=== PATIENT | male | born 1985 | race African-American/Black ===

== ENCOUNTER 2017-11-18 13:34 | Emergency (ER) | payer OTHER, SELFPAY ==
--- NOTE | 2017-11-18 14:52 | RAD ---
CHEST PA AND LATERAL: Date: 11/18/17 HISTORY: 32-year-old male with history of dyspnea. FINDINGS: There is cardiomegaly with some bilateral vascular congestion. No overt edema or confluent pneumonia. Slight costophrenic angle blunting, but no significant effusion. IMPRESSION: Cardiomegaly with mild vascular congestion, without overt edema or confluent pneumonia, or other acut e process. POS: [facility]
[2017-11-18] MEDS ORDERED: predniSONE 20 MG TAB ONE (16:29)
== END 2017-11-18 16:34 | disposition home or self-care (01) ==
LOC: MADERS 13:34
DX: T59.891A Toxic effect of other specified gases, fumes and vapors, accidental (unintentional), initial encounter (principal); J68.0 Bronchitis and pneumonitis due to chemicals, gases, fumes and vapors; F17.210 Nicotine dependence, cigarettes, uncomplicated; Z79.899 Other long term (current) drug therapy
CPT/HCPCS: 71046; J7506; J7620

== ENCOUNTER 2019-08-08 10:58 | Emergency (ER) | payer SELFPAY ==
--- NOTE | 2019-08-08 12:07 | RAD ---
EXAM: XR Lumbar Spine 2 Or 3 View PROVIDED CLINICAL HISTORY: Low back pain. COMPARISON: 05/31/2009 FINDINGS: 5 nonrib-bearing lumbar-type vertebral bodies are again seen. L5 vertebral body on the lateral views is limited due to technique and overlying iliac bone. However, the vertebral body heights and intervertebral disc spaces of the lumbar spine appear to be within normal limits. No obvious fracture is seen, and there is no evidence of a subluxation. No significant interval change is seen compared to prior study. IMPRESSION: No acute findings seen involving the lumbar spine; although, there is limited evaluation of the L5 ve rtebral body as described above.
== END 2019-08-08 12:30 | disposition home or self-care (01) ==
LOC: MADERS 10:58
DX: M62.838 Other muscle spasm (principal); I10 Essential (primary) hypertension; F17.210 Nicotine dependence, cigarettes, uncomplicated; Z79.899 Other long term (current) drug therapy
CPT/HCPCS: 72100

== ENCOUNTER 2019-11-21 02:07 | Emergency (ER) | payer SELFPAY ==
[2019-11-21 02:43] LABS: #Basophils 0.1 thou/uL (0.0-0.2); #Eosinphils 0.2 thou/uL (0.0-0.7); #Lymphocytes 3.2 thou/uL (1.20-3.40); #Monocytes 0.9 thou/uL (0.11-0.59); #Neutrophils 6.8 thou/uL (1.40-6.50); %Basophils 0.6 % (0.0-1.0); %Eosinophils 1.6 % (0.0-10.0); %Lymphocytes 28.8 % (21.0-51.0); %Monocytes 7.8 % (0.0-10.0); %Neutrophils 61.1 % (42.0-75.0); Mean Corpuscular HGB CONC 29.4 g/dL (32.0-36.0); Mean Corpuscular Hemoglobin 30.1 pg (27.0-31.0); Mean Corpuscular Volume 102.4 fL (78.0-98.0); Mean Platelet Volume 6.1 fL (7.4-10.4); Platelet Count 280 thou/uL (130-400); RBC Distribution Width 15.3 % (11.5-14.5); Red Blood Cell (RBC) Count 4.67 mill/uL (4.70-6.10); White Blood Cell (WBC) Count 11.1 thou/uL (4.8-10.8)
[2019-11-21] MEDS ORDERED: Furosemide 40 MG/4 ML VIAL ONE (02:45)
[2019-11-21 02:59] LABS: ALT (SGPT) 15 U/L (8-55); AST (SGOT) 16 U/L (5-34); Albumin 3.9 g/dL (3.5-5.0); Alkaline Phosphatase 77 U/L (40-110); Anion Gap 19 mmol/L (10-20); BUN (Urea Nitrogen) 18 mg/dL (8.9-20.6); Bilirubin, Total 0.9 mg/dL (0.2-1.2); Calc. Creatinine Clearance 0 mL/min (70-130); Calcium 8.9 mg/dL (7.8-10.44); Carbon Dioxide 29 mmol/L (22-29); Chloride 100 mmol/L (98-107); Estimated GFR-MDRD 63; Globulin 2.9 g/dL (2.4-3.5); Glucose 116 mg/dL (70-105); Potassium 3.6 mmol/L (3.5-5.1); Protein, Total 6.8 g/dL (6.0-8.3); Sodium 144 mmol/L (136-145)
[2019-11-21 03:34] LABS: CKMB 2.2 ng/mL (0-6.6)
--- NOTE | 2019-11-21 08:02 | RAD ---
EXAM: XR Chest 1 View Portable PROVIDED CLINICAL HISTORY: Shortness of breath COMPARISON: 10/05/2019 FINDINGS: Evaluation is limited by patient body habitus. The cardiac silhouette remains enlarged. Prominence of the pulmonary vasculature and pulmonary interstitium. No definite focal consolidation, pleural fluid or pneumothorax apparent. IMPRESSION: Cardiomegaly and findings suggesting congestive failure.
== END 2019-11-21 03:45 | disposition home or self-care (01) ==
LOC: MADERS 02:07
DX: I11.0 Hypertensive heart disease with heart failure (principal); I50.9 Heart failure, unspecified; F17.210 Nicotine dependence, cigarettes, uncomplicated
CPT/HCPCS: 71045; 80053; 82553; 83880; 84484; 85025; 93005; 96374; J1940

== ENCOUNTER 2020-02-07 08:05 | Emergency (ER) | payer SELFPAY ==
[2020-02-07] MEDS ORDERED: Ondansetron PF 4 MG/2 ML Vial ONE (08:51)
[2020-02-07] MEDS ORDERED: Sodium Chloride 0.9% 1,000 ML ONE (08:51)
[2020-02-07 08:59] LABS: #Basophils 0.1 thou/uL (0.0-0.2); #Eosinphils 0.1 thou/uL (0.0-0.7); #Lymphocytes 2.8 thou/uL (1.20-3.40); #Monocytes 0.8 thou/uL (0.11-0.59); #Neutrophils 6.2 thou/uL (1.40-6.50); %Basophils 0.9 % (0.0-1.0); %Lymphocytes 28.4 % (21.0-51.0); %Monocytes 7.9 % (0.0-10.0); %Neutrophils 61.8 % (42.0-75.0); Hemoglobin 14.5 g/dL (14.0-18.0); Mean Corpuscular HGB CONC 30.6 g/dL (32.0-36.0); Mean Corpuscular Hemoglobin 30.5 pg (27.0-31.0); Mean Corpuscular Volume 99.5 fL (78.0-98.0); Mean Platelet Volume 7.1 fL (7.4-10.4); Platelet Count 282 thou/uL (130-400); RBC Distribution Width 14.2 % (11.5-14.5); Red Blood Cell (RBC) Count 4.75 mill/uL (4.70-6.10)
--- NOTE | 2020-02-07 09:08 | RAD ---
Portable frontal chest radiograph: 02/07/2020 COMPARISON: 11/21/2019 HISTORY: Shortness of breath with history of congestive heart failure FINDINGS: Stable marked prominence of the cardiac silhouette suggests cardiomegaly and/or pericardial fluid. Mild pulmonary vascular congestion. No pneumothorax, alveolar edema, or large volume pleural effusion. IMPRESSION: Stable appearance of the chest as detailed above.
[2020-02-07 09:16] LABS: ALT (SGPT) 13 U/L (8-55); AST (SGOT) 16 U/L (5-34); Albumin 3.8 g/dL (3.5-5.0); Alkaline Phosphatase 74 U/L (40-110); Anion Gap 17 mmol/L (10-20); BUN (Urea Nitrogen) 36 mg/dL (8.9-20.6); Bilirubin, Total 0.9 mg/dL (0.2-1.2); Calc. Creatinine Clearance 0 mL/min (70-130); Calcium 9.2 mg/dL (7.8-10.44); Carbon Dioxide 30 mmol/L (22-29); Globulin 3.2 g/dL (2.4-3.5); Glucose 96 mg/dL (70-105)
[2020-02-07 09:27] LABS: Chloride 96 mmol/L (98-107); Potassium 3.7 mmol/L (3.5-5.1); Sodium 139 mmol/L (136-145)
[2020-02-07] MEDS ORDERED: Metoprolol Tartrate 5 MG/5 ML VIAL ONE ×2 (09:28→10:32)
[2020-02-07 09:33] LABS: CKMB 1.9 ng/mL (0-6.6)
== END 2020-02-07 10:35 | disposition short-term general hospital (02) ==
LOC: MADERS 08:05
DX: I48.91 Unspecified atrial fibrillation (principal); E27.40 Unspecified adrenocortical insufficiency; I11.0 Hypertensive heart disease with heart failure; I50.9 Heart failure, unspecified; F17.210 Nicotine dependence, cigarettes, uncomplicated; Z79.899 Other long term (current) drug therapy
CPT/HCPCS: 71045; 80053; 82553; 83880; 84484; 85025; 86140; 93005; 96374; 96375; J2405; J7050

== ENCOUNTER 2021-07-09 09:03 | Outpatient (CLI) | payer OTHER ==
[2021-07-09 10:06] LABS: Anion Gap 16 mmol/L (10-20); BUN (Urea Nitrogen) 34 mg/dL (8.9-20.6); BUN/Creatinine Ratio 18.58; Calc. Creatinine Clearance 0 mL/min (70-130); Calcium 9.5 mg/dL (7.8-10.44); Carbon Dioxide 27 mmol/L (22-29); Chloride 102 mmol/L (98-107); Glucose 104 mg/dL (70-105); Phosphorus 4.2 mg/dL (2.3-4.7); Potassium 4.2 mmol/L (3.5-5.1); Sodium 141 mmol/L (136-145)
[2021-07-09 10:18] LABS: Bilirubin Negative (Negative); Blood, Urine Negative (Negative); Clarity Clear (Clear); Glucose, Urine (Dipstick) Negative (Negative); Ketone, Urine Negative (Negative); Leukocyte Negative (Negative); Nitrite Negative (Negative); Protein, Urine (Dipstick) Trace mg/dL (Neg-Trace)
[2021-07-09 10:25] LABS: Bacteria/HPF Rare-Few HPF (None Seen); RBC/HPF None Seen HPF (0-3); Squamous Epithelial 0-3 HPF (0-3); WBC/HPF None Seen HPF (0-3)
[2021-07-09 18:04] LABS: Creatinine, Urine 177.78 mg/dL (63-166)
== END 2021-07-09 09:04 | disposition home or self-care (01) ==
LOC: MADLAB 09:03
PROVIDERS: ATTEND Internal Medicine Nephrology
DX: N18.30 Chronic kidney disease, stage 3 unspecified (principal)
CPT/HCPCS: 36415; 80069; 81001; 82570; 84156; 84540

== ENCOUNTER 2021-08-06 07:26 | Outpatient (CLI) | payer OTHER | END 2021-08-06 07:27 | disposition home or self-care (01) | LOC: MADEKG 07:26 | PROVIDERS: ATTEND Family Medicine | DX: I48.0 Paroxysmal atrial fibrillation (principal) | CPT/HCPCS: 93005; 93010 ==

== ENCOUNTER 2022-05-07 09:15 | Emergency (ER) | payer MEDICAID, OTHER | END 2022-05-07 10:28 | disposition home or self-care (01) | LOC: MADERS 09:15 | DX: S93.402A Sprain of unspecified ligament of left ankle, initial encounter (principal); I11.0 Hypertensive heart disease with heart failure; I50.9 Heart failure, unspecified; I48.91 Unspecified atrial fibrillation; F17.210 Nicotine dependence, cigarettes, uncomplicated; Z79.01 Long term (current) use of anticoagulants; X58.XXXA Exposure to other specified factors, initial encounter ==

== ENCOUNTER 2023-10-13 17:37 | Emergency (ER) | payer MEDICARE ==
[2023-10-13] MEDS ORDERED: Ipratropium/Albuterol 3 ML NEB ONE ×3 (18:20→21:15)
[2023-10-13] MEDS ORDERED: Furosemide 40 MG (4 mL) VIAL ONE (18:20)
[2023-10-13 19:03] LABS: ALT (SGPT) 13 U/L (8-55); AST (SGOT) 23 U/L (5-34); Albumin 4.1 g/dL (3.5-5.0); Alkaline Phosphatase 73 U/L (40-110); Anion Gap 18 mmol/L (10-20); BUN (Urea Nitrogen) 15 mg/dL (8.9-20.6); Bilirubin, Total 0.7 mg/dL (0.2-1.2); Calc. Creatinine Clearance 0 mL/min (70-130); Calcium 9.6 mg/dL (7.8-10.44); Carbon Dioxide 29 mmol/L (22-29); Chloride 101 mmol/L (98-107); Estimated GFR 64; Globulin 3.9 g/dL (2.4-3.5); Glucose 93 mg/dL (70-105); Potassium 3.7 mmol/L (3.5-5.1); Sodium 144 mmol/L (136-145)
[2023-10-13 19:09] LABS: Hematocrit 51.5 % (42.0-52.0); Hemoglobin 14.9 g/dL (14.0-18.0); Mean Corpuscular HGB CONC 28.9 g/dL (32.0-36.0); Mean Corpuscular Hemoglobin 29.6 pg (27.0-31.0); Mean Corpuscular Volume 102.5 fl (78.0-98.0); Mean Platelet Volume 7.1 fL (7.4-10.4); Platelet Count 233 10x3/uL (130-400); RBC Distribution Width 15.6 % (11.5-14.5); Red Blood Cell (RBC) Count 5.02 mill/uL (4.70-6.10); White Blood Cell (WBC) Count 14.2 10x3/uL (4.8-10.8)
[2023-10-13 19:16] LABS: SARS-CoV-2 E Target Negative; SARS-CoV-2 N2 Target Negative; SARS-CoV-2 NAA Rapid Test Not Detected (NotDetected); SARS-CoV-2 RdRP gene Negative
[2023-10-13 19:20] LABS: Band 1 % (5-11); Eosinophils 1 % (0-10); Lymphocytes 5 % (21-51); MDiff Complete? YES; Manual Diff?? YES; Monocytes 8 % (0-10); Neutrophil 77 % (42-75); Platelet Adequacy Comment Appears Adequate; RBC Morph Comment Within Normal Limits; Reactive Lymphocytes 8 % (0-10)
[2023-10-13] MEDS ORDERED: predniSONE 20 MG TAB ONE (19:57)
== END 2023-10-13 21:48 | disposition home or self-care (01) ==
LOC: MADERS 17:37
DX: J45.901 Unspecified asthma with (acute) exacerbation (principal); I11.0 Hypertensive heart disease with heart failure; I50.9 Heart failure, unspecified; F17.210 Nicotine dependence, cigarettes, uncomplicated; Z79.01 Long term (current) use of anticoagulants
CPT/HCPCS: 71046; 80053; 83605; 83880; 85025; 87804; 93005; 96374; J1940; J7512; J7620; U0002

== ENCOUNTER 2023-12-20 09:34 | Emergency (ER) | payer MEDICARE ==
[2023-12-20] MEDS ORDERED: Ipratropium Bromide 2.5 ml Neb ONE ×2 (10:07→11:05)
[2023-12-20] MEDS ORDERED: Nitroglycerin 0.4 MG TAB 1 EACH ONE (10:07)
[2023-12-20] MEDS ORDERED: Furosemide 40 MG (4 mL) VIAL ONE ×2 (10:07→16:41)
[2023-12-20] MEDS ORDERED: methylPREDNISolone Sod Succ/PF 125 MG/2 ML VIAL ONE (10:07)
[2023-12-20] MEDS ORDERED: Albuterol 2.5 MG (0.5 mL) NEB ONE ×2 (10:07→11:05)
[2023-12-20 10:26] LABS: ALT (SGPT) 23 U/L (8-55); AST (SGOT) 44 U/L (5-34); Albumin 3.7 g/dL (3.5-5.0); Alkaline Phosphatase 70 U/L (40-110); Anion Gap 16 mmol/L (10-20); BUN (Urea Nitrogen) 28 mg/dL (8.9-20.6); Calc. Creatinine Clearance 0 mL/min (70-130); Carbon Dioxide 29 mmol/L (22-29); Chloride 100 mmol/L (98-107); Estimated GFR 54; Globulin 3.9 g/dL (2.4-3.5); Glucose 113 mg/dL (70-105); Magnesium 1.9 mg/dL (1.6-2.6); Potassium 3.8 mmol/L (3.5-5.1); Protein, Total 7.6 g/dL (6.0-8.3); Sodium 141 mmol/L (136-145)
[2023-12-20 10:30] LABS: Band 10 % (5-11); Hematocrit 50.6 % (42.0-52.0); Hemoglobin 14.9 g/dL (14.0-18.0); Hypochromia SLIGHT = 6-15 cells (100X) (0-5/hpf); Lymphocytes 10 % (21-51); MDiff Complete? YES; Mean Corpuscular HGB CONC 29.4 g/dL (32.0-36.0); Mean Corpuscular Hemoglobin 29.6 pg (27.0-31.0); Mean Corpuscular Volume 100.6 fl (78.0-98.0); Mean Platelet Volume 8.3 fL (7.4-10.4); Monocytes 15 % (0-10); Neutrophil 63 % (42-75); Platelet Adequacy Comment Appears Adequate; Platelet Count 199 10x3/uL (130-400); RBC Distribution Width 15.2 % (11.5-14.5); Red Blood Cell (RBC) Count 5.03 mill/uL (4.70-6.10); White Blood Cell (WBC) Count 8.1 10x3/uL (4.8-10.8)
[2023-12-20 10:35] LABS: Base Excess-Venous 3.3 mmol/L (-2.0 to 3.0); Bicarbonate (HCO3v) 33.5 mmol/L (22.0-28.0); CO2 Tension (PvCO2) 72.1 mmHg (42.0-51.0); Calcium, Ionized 1.12 mmol/L (1.15-1.33); Chloride 101 mmol/L (98-107); Hemoglobin - Calc 18.1 g/dL (14.0-18.0); Potassium 3.7 mmol/L (3.5-5.1); Sodium 141 mmol/L (138-145); T. Carbon Dioxide 35.7 mmol/L (22.0-28.0); vO2 Saturation-calc 94.8 % (60.0-85.0)
[2023-12-20 10:36] LABS: INR-International Normal Ratio 1.3; Prothrombin Time 16.3 sec (12.0-14.7)
[2023-12-20 10:37] LABS: PTT 35.5 sec (22.9-36.1)
[2023-12-20 10:59] LABS: Critical Call Chem Troponin I NUR.AW2@1058; Troponin I 0.422 ng/mL (< 0.028)
[2023-12-20] MEDS ORDERED: Aspirin Chewable 81 MG TAB ONE (11:05)
[2023-12-20] MEDS ORDERED: Oseltamivir 75 MG CAP ONE (11:17)
[2023-12-20 11:39] LABS: Base Excess-Venous 7.6 mmol/L (-2.0 to 3.0); CO2 Tension (PvCO2) 57.1 mmHg (42.0-51.0); Calcium, Ionized 1.01 mmol/L (1.15-1.33); Chloride 103 mmol/L (98-107); Hemoglobin - Calc 17.3 g/dL (14.0-18.0); Potassium 3.8 mmol/L (3.5-5.1); Sodium 140 mmol/L (138-145); T. Carbon Dioxide 36.7 mmol/L (22.0-28.0); vO2 Saturation-calc 71.2 % (60.0-85.0)
[2023-12-20] MEDS ORDERED: Ipratropium/Albuterol 3 ML NEB ONE ×2 (13:08→16:41)
[2023-12-20 13:50] LABS: Troponin I 0.445 ng/mL (< 0.028)
[2023-12-20 16:47] LABS: Critical Call Chem Troponin I NUR.AW2@1646; Troponin I 0.312 ng/mL (< 0.028)
== END 2023-12-20 17:19 | disposition short-term general hospital (02) ==
LOC: MADERS 09:34
DX: J11.1 Influenza due to unidentified influenza virus with other respiratory manifestations (principal); I11.0 Hypertensive heart disease with heart failure; I50.9 Heart failure, unspecified; J45.901 Unspecified asthma with (acute) exacerbation; J96.02 Acute respiratory failure with hypercapnia; I21.4 Non-ST elevation (NSTEMI) myocardial infarction; I48.91 Unspecified atrial fibrillation; F17.210 Nicotine dependence, cigarettes, uncomplicated; Z79.01 Long term (current) use of anticoagulants
CPT/HCPCS: 71045; 80053; 82330; 82435; 82803; 83605; 83735; 83880; 84132; 84295; 84443; 84484; 85014; 85025; 85610; 85730; 87040; 87400; 87426; 93005; 94760; 96374; 96375; 96376; J1940; J2919; J7611; J7620; J7644